=== PATIENT | female | born 1965 | race Caucasian/White ===

== ENCOUNTER 2019-01-31 21:28 | Emergency (ER) | payer OTHER ==
[2019-01-31 22:16] VITALS: TEMP 98; BMI 47.2
--- NOTE | 2019-02-01 00:09 | PDOC ---
History of Present Illness - General History Source: Patient, Family Exam Limitations: No Limitations - History of Present Illness Initial Comments: 02/01/19 00:11 The patient is a 54 year old female with no past medical history who presents to the emergency department for evaluation of elevated blood pressure. Patient reports visiting an urgent prior to ED visit secondary to swelling to upper lip s/p mechanical fall on the street this evening. Patient states UC prompted patient to visit ED for further evaluation due to elevated blood pressure of 229 /148. Patient endorses frequent headaches. The patient denies chest pain, shortness of breath, and dizziness. Denies fevers , chills, nausea, vomiting, diarrhea, and constipation. Denies urinary urgency/ frequency, hematuria, and dysuria. Allergies: No known allergies Social History: No reported alcohol, cigarette, or drug use. PCP: None. <Cooper Argueta - Last Filed: 02/01/19 00:11> <Urmila Power - Last Filed: 02/01/19 02:22> - General Chief Complaint: Injury Stated Complaint: HYPERTENSION/LIP LACERATION Time Seen by Provider: 01/31/19 23:40 Past History <Cooper Argueta - Last Filed: 02/01/19 00:11> - Past Medical History COPD: No Other medical history: Pt denies - Suicide/Smoking/Psychosocial Hx Smoking History: Current every day smoker Have you smoked in the past 12 months: Yes Number of Cigarettes Smoked Daily: 6 Information on smoking cessation initiated: No Hx Alcohol Use: No Drug/Substance Use Hx: No <Urmila Power - Last Filed: 02/01/19 02:22> - Past Medical History Allergies/Adverse Reactions: Allergies Allergy/AdvReac Type Severity Reaction Status Date / Time No Known Allergies Allergy Verified 01/31/19 22:11 Home Medications: Ambulatory Orders NK [No Known Home Medication] 02/01/19 Review of Systems - Review of Systems Able to Perform ROS?: Yes Comments:: 02/01/19 00:11 CONSTITUTIONAL: Absent: fever, chills, diaphoresis, generalized weakness, malaise, loss of appetite HEENT: (+)Lip laceration. (+)Lip pain. Absent: rhinorrhea, nasal congestion, throat pain, throat swelling, difficulty swallowing, mouth swelling, ear pain, eye pain, visual Changes CARDIOVASCULAR: Absent: chest pain, syncope, palpitations, irregular heart rate, lightheadedness , peripheral edema RESPIRATORY: Absent: cough, shortness of breath, dyspnea with exertion, orthopnea, wheezing, stridor, hemoptysis GASTROINTESTINAL: Absent: abdominal pain, abdominal distension, nausea, vomiting, diarrhea, constipation, melena, hematochezia GENITOURINARY: Absent: dysuria, frequency, urgency, hesitancy, hematuria, flank pain, genital pain MUSCULOSKELETAL: Absent: myalgia, arthralgia, joint swelling SKIN: Absent: rash, itching, pallor HEMATOLOGIC/IMMUNOLOGIC: Absent: easy bleeding, easy bruising, lymphadenopathy, frequent infections ENDOCRINE: Absent: unexplained weight gain, unexplained weight loss, heat intolerance, cold intolerance NEUROLOGIC: (+)headache Absent: focal weakness or paresthesias, dizziness, unsteady gait, seizure, mental status changes, bladder or bowel incontinence PSYCHIATRIC: Absent: anxiety, depression, suicidal or homicidal ideation, hallucinations. <KendallCooper - Last Filed: 02/01/19 00:11> *Physical Exam - Vital Signs Last Vital Signs Temp Pulse Resp BP Pulse Ox 98.0 F 111 H 18 229/148 H 98 01/31/19 22:11 01/31/19 23:12 01/31/19 22:11 01/31/19 23:12 01/31/19 22:11 - Physical Exam Comments: 02/01/19 00:11 GENERAL: Well developed, well nourished. Awake and alert. No acute distress. HEENT: (+)lacerated and abraded maxillary lip. (+)abrasions to nose. (+) reproducible occlusion. (+)chipped tooth #8, all teeth are crowned, porcelain fused metal crowns. PERRLA, EOMI. No conjunctival pallor. Sclera are non- icteric. Moist mucous membranes. NECK: Supple. Full ROM. No JVD. Carotid pulses 2+ and symmetric, without bruits. No thyromegaly. No lymphadenopathy. CARDIOVASCULAR: Regular rate and rhythm. No murmurs, rubs, or gallops. Distal pulses are 2+ and symmetric. PULMONARY: No evidence of respiratory distress. Lungs clear to auscultation bilaterally. No wheezing, rales or rhonchi. ABDOMINAL: Soft. Non-tender. Non-distended. No rebound or guarding. No organomegaly. Normoactive bowel sounds. MUSCULOSKELETAL Normal range of motion at all joints. No bony deformities or tenderness. No CVA tenderness. EXTREMITIES: No cyanosis. No clubbing. No edema. No calf tenderness. SKIN: Warm and dry. Normal capillary refill. No rashes. No jaundice. NEUROLOGICAL: Alert, awake, appropriate. Cranial nerves 2-12 intact. No deficits to light touch and temperature in face, upper extremities and lower extremities. No motor deficits in the in face, upper extremities and lower extremities. Normoreflexic in the upper and lower extremities. Normal speech. Toes are down- going bilaterally. Gait is normal without ataxia. PSYCHIATRIC: Cooperative. Good eye contact. Appropriate mood and affect. <Cooper Argueta - Last Filed: 02/01/19 00:11> - Vital Signs Last Vital Signs Temp Pulse Resp BP Pulse Ox 98.0 F 111 H 18 229/148 H 98 01/31/19 22:11 01/31/19 23:12 01/31/19 22:11 01/31/19 23:12 01/31/19 22:11 <Urmila Power - Last Filed: 02/01/19 02:22> Procedures - Laceration/Wound Repair Lip Wound Length: to 2.5 cm Wound Explored: no foreign body present Wound's Depth, Shape: into muscle, irregular, flap Irrigated w/ Saline: Yes Betadine Prep: No Anesthesia: 1% Lidocaine (1 cc for dental block) Wound Debrided: moderate Wound Repaired With: Sutures Suture Size/Type: 5:0, other (RESORBABLE sutures placed on inside of lip) Number of Sutures: 2 Sterile Dressing Applied: No Splint Applied: No Sling Applied: No <Urmila Power - Last Filed: 02/01/19 02:22> ED Treatment Course - LABORATORY CBC & Chemistry Diagram: 02/01/19 01:14 02/01/19 01:14 <Urmila Power - Last Filed: 02/01/19 02:22> Medical Decision Making - Medical Decision Making 02/01/19 02:02 this 54 yo female has a witnessed mechanical fall tonight she refuses to see a physician according to the family and has not sought medical care for decades her brothers and sisters have hypertension and diabetes ct scan head no acute intracranial pathology ekg sinus tachy @ 101 huo=229 renal function is good her blood pressure is elevated but she DENIES any shortness of breath,chest pain, headache,nausea or vomiting 02/01/19 02:11 I spoke at length with the family who spoke to the patient REVIEW LABS normal cbc,renal function, lfts normal [id number] in [place] about the importance of getting her blood pressure under control She has never taken any medications of any kind she has never had any surgeries and she never had childbirth pt was told to see a physican ,she does have health insurance <Urmila Power - Last Filed: 02/01/19 02:22> *DC/Admit/Observation/Transfer - Attestations Scribe Attestion: Documentation prepared by Cooper Argueta, acting as medical transcriber for Urmila Power MD. <Cooper Argueta - Last Filed: 02/01/19 00:11> <Urmila Power - Last Filed: 02/01/19 02:22> Diagnosis at time of Disposition: Elevated blood pressure reading, Hyperglycemia Facial abrasion Qualifiers: Encounter type: initial encounter Qualified Code(s): S00.81XA - Abrasion of other part of head, initial encounter Laceration of lip Qualifiers: Encounter type: initial encounter Qualified Code(s): S01.511A - Laceration without foreign body of lip, initial encounter - Discharge Dispostion Disposition: HOME Condition at time of disposition: Stable - Patient Instructions Printed Discharge Instructions: DI for Closed Head Injury, DI for Laceration Repair, DI for High Blood Pressure, DI for Abrasion Additional Instructions: Your sutures will dissolve Please have a liquid,soft food only diet for the next 3-4 days. Avoid hot food and fluids for 3 days Please apply bacitracin to wound twice daily You must take medicine for your high blood pressure. You have to make an appointment with a primary care physician for further care of your hypertension supervisor paste mixing your medicine at the pharmacy
[2019-02-01] MEDS ORDERED: HYDROCHLOROTHIAZIDE 25 MG TABLET (FP) PO ONE (00:23)
[2019-02-01] MEDS ORDERED: METOPROLOL TARTRATE 25 MG TABLET (FP) PO ONE (00:23)
[2019-02-01 01:20] LABS: BASO % 0.8 % (0-2.0); EOS % 0.2 % (0-4.5); HEMATOCRIT 43.5 % (32.4-45.2); HEMOGLOBIN 15.1 GM/dL (10.7-15.3); LYMPH % 13.4 % (8-40); MCH 29.9 pg (25.7-33.7); MCHC 34.6 g/dl (32.0-36.0); MEAN CELL VOLUME 86.2 fl (80-96); MEAN PLT VOLUME 9.8 fl (7.5-11.1); MONO % 4.5 % (3.8-10.2); NEUT % 81.1 % (42.8-82.8); PLATELET COUNT 190 K/MM3 (134-434); RBC 5.05 M/mm3 (3.60-5.2); RDW 13.5 % (11.6-15.6); WHITE BLOOD COUNT 10.8 K/mm3 (4.0-10.0)
[2019-02-01] MEDS ORDERED: HYDROCHLOROTHIAZIDE 25 MG TABLET (FP) ONE (01:37)
[2019-02-01] MEDS ORDERED: METOPROLOL TARTRATE 25 MG TABLET (FP) ONE (01:38)
[2019-02-01 01:58] LABS: ALBUMIN 4.1 g/dl (3.4-5.0); ALK PHOS 118 U/L (45-117); ANION GAP 6 MMOL/L (8-16); BILIRUBIN,TOTAL 0.5 mg/dL (0.2-1); BLOOD UREA NITROGEN 15 mg/dL (7-18); CHLORIDE 110 mmol/L (98-107); CO2 26 mmol/L (21-32); CREATININE 0.6 mg/dL (0.55-1.3); GLUCOSE,RANDOM 136 mg/dL (74-106); POTASSIUM 3.9 mmol/L (3.5-5.1); SGOT/AST 19 U/L (15-37); SGPT/ALT 24 U/L (13-61); SODIUM 141 mmol/L (136-145); TOT PROT 7.5 g/dl (6.4-8.2)
[2019-02-01] MEDS ORDERED: BACITRACIN 0.9 GM PACKET TP ONE (02:22)
[2019-02-01] MEDS ORDERED: BACITRACIN 0.9 GM PACKET ONE (02:23)
[2019-02-01 02:37] VITALS: BP 175/105; PULSE 75
--- NOTE | 2019-02-01 09:35 | EKG ---
Test Reason : Blood Pressure : / mmHG Vent. Rate : 101 BPM Atrial Rate : 101 BPM P-R Int : 120 ms QRS Dur : 072 ms QT Int : 346 ms P-R-T Axes : 063 012 024 degrees QTc Int : 448 ms SINUS TACHYCARDIA BIATRIAL ENLARGEMENT ABNORMAL ECG NO PREVIOUS ECGS AVAILABLE Confirmed by MORIAH MACE, GARFIELD ([id number]) on 02/01/2019 9:35:09 AM Referred By: Confirmed By:GARFIELD MAJOR MD
== END 2019-02-01 02:36 | disposition home or self-care (01) ==
LOC: JER 21:28
PROC: 0CQ03ZZ Repair Upper Lip, Percutaneous Approach (ICD-10-PCS; principal; 2019-01-31)
DX: S01.511A Laceration without foreign body of lip, initial encounter (principal); S00.81XA Abrasion of other part of head, initial encounter; W18.39XA Other fall on same level, initial encounter; Y93.89 Activity, other specified; Y92.414 Local residential or business street as the place of occurrence of the external cause; Y99.8 Other external cause status; R73.9 Hyperglycemia, unspecified; R03.0 Elevated blood-pressure reading, without diagnosis of hypertension
CPT/HCPCS: 12011-25; 36415; 70450-TC; 80053; 85025; 93005; 93010; 99281-25